=== PATIENT | male | born 1950 | race Caucasian/White ===

== ENCOUNTER 2018-09-24 15:11 | Inpatient (IN) | payer OTHER ==
[~2018-09-24] VITALS: Ht 185.4 cm; Wt 146.0 kg
[2018-09-24] MEDS ORDERED: LASIX 40 MG TAB40 M2 PO (15:14)
[2018-09-24] MEDS ORDERED: HYDROXYZINE HCL25 M1 PO (15:14)
[2018-09-24] MEDS ORDERED: TRAMADOL 50 MG50 MG PO (15:15)
[2018-09-24] MEDS ORDERED: NAPROSYN500 M1 PO (15:16)
[2018-09-24 15:17] VITALS: BP 139/75
[2018-09-24] MEDS ORDERED: CETIRIZINE HCL5 MG PO (15:17)
[2018-09-24] MEDS ORDERED: FLOMAX0.4 MG PO (15:17)
[2018-09-24] MEDS ORDERED: ZOCOR20 MG PO (15:18)
[2018-09-24] MEDS ORDERED: TRICOR145 MG PO (15:19)
[2018-09-24] MEDS ORDERED: TOPROL XL25 MG PO (15:19)
[2018-09-24] MEDS ORDERED: CYMBALTA60 MG PO (15:20)
[2018-09-24] MEDS ORDERED: MYRBETRIQ50 MG PO (15:20)
[2018-09-24] MEDS ORDERED: OXYBUTYNIN 5 MG5 M2 PO (15:21)
[2018-09-24] MEDS ORDERED: FLONASE 0.05%50 MCG NASAL (15:21)
[2018-09-24] MEDS ORDERED: ASPIRIN81 M2 PO (15:22)
[2018-09-24] MEDS ORDERED: IRON325 PO (15:22)
[2018-09-24 15:31] LABS: ABSOLUTE LYMPHOCYTES 1.2 thou/uL (0.8-5.3); ABSOLUTE MONOCYTES 0.7 thou/uL (0.0-1.2); ABSOLUTE NEUTROPHILS 8.5 thou/uL (1.6-8.1); BASOPHILS 0.4 %; EOSINOPHILS 0.3 %; HEMATOCRIT 37.7 % (42.0-52.0); HEMOGLOBIN 12.4 gm/dL (14.0-18.0); LYMPHOCYTES 11.3 %; MCH 29.8 pg (26.0-34.0); MCHC 32.9 g/dL (28.0-37.0); MCV 90.7 fL (80.0-100.0); MONOCYTES 6.6 %; MPV 7.9 fl. (7.2-11.1); NUCLEATED RBCS 0 /100WBC; PLATELET COUNT* 326 thou/uL (150-400); POLYS 81.4 %; RBC 4.16 mil/uL (4.50-6.00); RDW-CV 14.7 % (10.5-14.5); WBC 10.4 thou/uL (4.0-11.0)
[2018-09-24 15:40] LABS: ANION GAP 10 mmol/L (7-16); BUN 60 mg/dL (7-18); CALCIUM 8.5 mg/dL (8.5-10.1); CHLORIDE 108 mmol/L (98-107); CO2 24 mmol/L (21-32); CREATININE 2.7 mg/dL (0.6-1.3); GLUCOSE 123 mg/dL (70-99); POTASSIUM 4.4 mmol/L (3.5-5.1); SODIUM 142 mmol/L (136-145)
[2018-09-24 15:42] LABS: APTT 25.8 Seconds (25.0-31.3); PROTIME 10.5 Seconds (9.20-11.50)
[2018-09-24 15:50] LABS: ALBUMIN 2.7 g/dL (3.4-5.0); ALKALINE PHOSPHATASE 58 U/L (46-116); LIPASE 507 U/L (73-393); SGOT 26 U/L (15-37); SGPT 48 U/L (30-65); TOTAL BILIRUBIN 0.4 mg/dL (<0.1-1.0); TOTAL PROTEIN 7.2 g/dL (6.4-8.2); TROPONIN-I LEVEL <0.06 ng/mL (<0.06)
[2018-09-24 16:31] LABS: URINE BILIRUBIN NEGATIVE (Negative); URINE BLOOD TRACE (Negative); URINE CLARITY SL CLOUDY; URINE COLOR YELLOW; URINE GLUCOSE-RANDOM NEGATIVE (Negative); URINE KETONES NEGATIVE (Negative); URINE PROTEIN NEGATIVE (Negative); URINE SPECIFIC GRAVITY 1.015 (1.005-1.030); URINE UROBILINOGEN 0.2 E.U./dl (0.2-1.0)
[2018-09-24 16:32] LABS: URINE LEUKOCYTES-REFLEX 3+ (Negative); URINE NITRITE-REFLEX POSITIVE (Negative)
[2018-09-24 16:52] LABS: SQUAMOUS NONE SEEN /LPF (0-3); URINE WBC-REFLEX >25 Many /HPF (0-5)
[2018-09-24 16:53] LABS: BACTERIA-REFLEX >30 Many /HPF (None Seen); CASTS None Seen /LPF (None Seen); CRYSTALS None Seen /LPF (None Seen); MUCUS None Seen strn/LPF (None Seen); URINE RBC 0-2 Rare /HPF (0-2); WBC CLUMPS Few (None Seen)
[2018-09-24 20:08] VITALS: BP 157/73
[2018-09-24 20:14] VITALS: BP 127/75
--- NOTE | 2018-09-24 22:29 | NUR ---
RECEIVED REPORT FROM ER AND ASSUMED CARE OF PT APPROX 2009. PATIENT A&OX4. DENIES PAIN AND DISCOMFORT. VSS ON ROOM AIR. PATIENT STATES LIGHTHEADEDNESS IS SLIGHTLY BETTER, BUT STILL THERE OCCASIONALLY. 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 ADDRESSED ELEVATED D-DIMER WITH DR. CHANEY, NO NEW ORDERS RECEIVED. PATIENT ORIENTED TO ROOM AND CALL LIGHT. GOAL IS TO MAINTAIN PATIENT SAFETY AND PREVENT FALLS FROM SYNCOPE.
[2018-09-24 23:35] VITALS: BP 131/76
[2018-09-24 23:57] VITALS: BP 147/77
[2018-09-25] VITALS (8 sets, daily range): BP systolic 115–144; BP diastolic 56–76
[2018-09-25] MEDS ORDERED: GENTAMICIN 0.1%15 G2 TOP (01:57)
[2018-09-25] MEDS ORDERED: IBU800 MG PO (01:58)
[2018-09-25] MEDS ORDERED: APAP650 PO (02:07)
[2018-09-25 05:12] LABS: HEMATOCRIT 33.5 % (42.0-52.0); MCH 29.8 pg (26.0-34.0); MCHC 32.7 g/dL (28.0-37.0); MCV 91.3 fL (80.0-100.0); MPV 8.2 fl. (7.2-11.1); RBC 3.67 mil/uL (4.50-6.00); WBC 9.4 thou/uL (4.0-11.0)
[2018-09-25 05:31] LABS: CALCIUM 8.2 mg/dL (8.5-10.1); CREATININE 2.4 mg/dL (0.6-1.3); MAGNESIUM 1.8 mg/dL (1.8-2.4); POTASSIUM 4.5 mmol/L (3.5-5.1)
--- NOTE | 2018-09-25 05:48 | NUR ---
PATIENT PROGRESSING TOWARDS GOALS: NO EPISODES OF SYNCOPE THIS SHIFT, ALTHOUGH PATIENT DOES REPORT SOME LIGHTHEADEDNESS AT TIMES. PATIENT INSTRUCTED ON FALL PRECAUTIONS AND HE IS COMPLIANT. HR OCCASIONALLY INTO 160-180'S. DR. LANDRY NOTIFIED AND ORDERS OBTAINED FOR CARDIZEM GTT. CARDIZEM INFUSING AT 5 ML/HR. BLOOD PRESSURE STABLE. PATIENT HAS C/O PAIN IN LEFT BACK, PARTIALLY RELIEVED WITH MEDS PER MAR, ICE, AND HEAT APPLICATION. PATIENT ENCOURAGED TO REPOSITION FOR COMFORT. CALL LIGHT WITHIN REACH.
--- NOTE | 2018-09-25 09:00 | NUR ---
ASSUMED CARE OF PT AT 0730. PT RESTING IN BED. PT A&0X4, DENIES ANY PAIN OR SHROTNESS OF BREATH AT THIS TIME. PT NPO AT THIS TIME FOR CARDIOLOGY CONSULT. PT TRACING SR WITH BBB AND PACS ON THE SOLID DIE CUTTER. ON 2L NC SAT UPPER 90'S. CARDIZEM GTT INFUSING AT 5ML/HR. IVF. PT UP WITH 1 ASSIST AND CANE TO BATHROOM. PT GOAL FOR TODAY IS BE SEEN BY CARDIOLOGY, REMAIN FREE FROM FALLS AND REMAIN IN SINUS RHYTHM WITH NO EPISODES OF SVT. AM ASSESSMENT CHARTED. MEDICATIONS PER MAY. PT REPOSITIONS SELF. HOURLY ROUNDING OBSERVED. BED IN LOW POSITION. CALL LIGHT WITHIN REACH. WILL CONTINUE PLAN OF CARE.
--- NOTE | 2018-09-25 12:27 | NUR ---
MET WITH PT TO DISCUSS HOME SITUATION/DC PLANNING. PT LIVES WITH HIS SISTER. SHE IS DPOA. PT IS INDEPENDENT AND ACTIVE, USES CANE. HASN'T HAD HH. PT DID GO TO SNF IN PAST AT [facility]. PT DENIES DC NEEDS AT THIS TIME, WILL FOLLOW
[2018-09-25 13:30] LABS: CHOLESTEROL 85 mg/dL (<200); HDL CHOLESTEROL 37 mg/dL (>40); LDL CHOLESTEROL 25 mg/dL (<100); TC:HDL 2.3 Ratio (Not establshd); TRIGLYCERIDE 117 mg/dL (<150); VLDL 23 mg/dL (<40)
[2018-09-25 13:34] LABS: SERUM ASSESSMENT Clear
--- NOTE | 2018-09-25 14:25 | 2DMMODE ---
[place] [address] 2 D/M-MODE ECHOCARDIOGRAM Name: JACEK KURTZ Room: [facility] ADM IN [facility]#: [id number] Admission: 09/24/18 Attend Phys: Nicolas Byers, Discharge: Date of : 48 Date of Service: 09/25/18 1425 Report #: [id number] THIS REPORT FOR: //name// APPROVED REPORT Study performed: 09/25/2018 10:35:51 EXAM: Comprehensive 2D, Doppler, and color-flow Echocardiogram Patient Location: In-Patient Room #: [facility] [place] Status: routine BSA: 2.57 HR: 71 bpm BP: 133/76 mmHg Rhythm: NSR Other Information Study Quality: Good Indications Hypertension/HDD 2D Dimensions IVSd: 14.23 (7-11mm) LVOT Diam: 26.28 (18-24mm) LVDd: 56.18 mm PWd: 12.73 (7-11mm) Ascending Ao: 36.40 (22-36mm) LVDs: 37.31 (25-40mm) Aortic Root: 35.51 mm Volumes Left Atrial Volume (Systole) LA ESV Index: 27.20 mL/m2 Aortic Valve AoV Peak Williams.: 1.53 m/s AO Peak Gr.: 9.31 mmHg LVOT Max P.65 mmHg AO Mean Gr.: 5.59 mmHg LVOT Mean P.95 mmHg LVOT Max V: 0.96 m/s AO V2 VTI: 34.24 cm LVOT Mean V: 0.65 m/s MONTSE (VTI): 3.57 cm2 LVOT V1 VTI: 22.51 cm Mitral Valve E/A Ratio: 1.18 MV Decel. Time: 188.55 ms MV E Max Williams.: 0.78 m/[place] [address] 2 D/M-MODE ECHOCARDIOGRAM Name: JACEK KURTZ Room: [facility] IN .R.#: [id number] Admission: 09/24/18 Attend Phys: Nicolas Byers, Discharge: Date of : 48 Date of Service: 09/25/18 1425 Report #: [id number] MV PHT: 54.68 ms MVA (PHT): 4.02 cm2 TDI E/Lateral E': 6.00 E/Medial E': 8.67 Medial E' Williams.: 0.09 m/s Lateral E' Williams.: 0.13 m/s Pulmonary Valve PV Peak Williams.: 0.99 m/s PV Peak Gr.: 3.92 mmHg Tricuspid Valve RAP Estimate: 5.00 mmHg TR Peak Gr.: 33.26 mmHg RVSP: 38.00 mmHg PA Pressure: 38.00 mmHg Left Ventricle The left ventricle is normal size. There is normal LV segmental wall motion. There is normal left ventricular wall thickness. Left ventricular systolic function is normal. The left ventricular ejection fraction is within the normal range. LVEF is 55-60%. The left ventricular diastolic function is normal. Right Ventricle The right ventricle is normal size. The right ventricular systolic function is normal. Atria The left atrium size is normal. The right atrium size is normal. Aortic Valve Mild aortic valve sclerosis. Mild aortic regurgitation. There is no aortic valvular stenosis. Mitral Valve The mitral valve is normal in structure. Trace mitral regurgitation. No evidence of mitral valve stenosis. Tricuspid Valve The tricuspid valve is normal in structure. Trace tricuspid regurgitation. Mild pulmonary hypertension. Pulmonic Valve The pulmonary valve is normal in structure. There is no pulmonic [place] [address] 2 D/M-MODE ECHOCARDIOGRAM Name: TESSIEJACEK Johnathan Room: [address] IN [facility]#: [id number] Admission: 09/24/18 Attend Phys: Nicolas Byers, Discharge: Date of : 48 Date of Service: 09/25/18 1425 Report #: [id number] Great Vessels The aortic root is normal in size. The inferior vena cava is not well visualized. Pericardium There is no pericardial effusion. <Conclusion> The left ventricle is normal size. There is normal left ventricular wall thickness. Left ventricular systolic function is normal. The left ventricular ejection fraction is within the normal range. LVEF is 55-60%. The left ventricular diastolic function is normal. The right ventricle is normal size. The left atrium size is normal. Mild aortic valve sclerosis. Mild aortic regurgitation. There is no aortic valvular stenosis. The mitral valve is normal in structure. Trace mitral regurgitation. The tricuspid valve is normal in structure. There is no pericardial effusion. There is normal LV segmental wall motion. <ELECTRONICALLY SIGNED> By: Jacek Castillo MD, FACC 09/25/18 1425 1425 1425 Jacek Castillo MD, FACC /INF
--- NOTE | 2018-09-25 16:46 | NUR ---
PT COMPLAINED OF CHEST HEAVINESS AT APPROXIMATELY 1640. VITAL SIGNS STABLE AT 132/70, HEART RATE IN THE 60'S-70'S. PT STATES THE PRESSURE COMES AND GOES. EKG OBTAINED- PT TRACING SR WITH BBB AND PAC'S ON THE USER EXPERIENCE TEAM LEAD. ON 2L NC SAT 99%. PT DENIES ANY SHORTNESS OF BREATH. PT UP WITH 1 ASSIST AND CANE TO BATHROOM. SOTALOL STARTED TODAY. CARDIZEM GTT CONTINUES TO INFUSE AT 10ML/HR. IVF. PT HAD ECHO TODAY-EF 55-60%. PT NOT PROGRESSING TOWARDS GOALS. MEDICATIONS PER MAR. PT REPOSITIONS SELF. HOURLY ROUNDING OBSERVED. BED IN LOW POSITION. CALL LIGHT WITHIN REACH. WILL CONTINUE PLAN OF CARE.
[2018-09-26] VITALS: BP 109/63
[2018-09-26 04:17] VITALS: BP 126/68
--- NOTE | 2018-09-26 05:50 | NUR ---
RECEIVED REPORT AND ASSUMED CARE OF PATIENT AT APPROX 1930. PATIENT C/O CHEST PRESSURE AND SHORTNESS OF AIR AT TIME OF ASSESSMENT. EKG OBTAINED. DR. PHILLIP NOTIFIED. ORDERS RECEIVED AND CARRIED OUT. PATIENT REPORTS NO FURTHER CHEST PRESSURE AT THIS TIME. CARDIZEM GTT TURNED OFF DUE TO SOFT BP AND LOW HR. PATIENT INFORMED OF PLAN OF CARE. CALL LIGHT WITHIN REACH.
[2018-09-26 05:57] LABS: ANION GAP 7 mmol/L (7-16); BUN 45 mg/dL (7-18); CALCIUM 8.2 mg/dL (8.5-10.1); CHLORIDE 112 mmol/L (98-107); CO2 26 mmol/L (21-32); CREATININE 2.1 mg/dL (0.6-1.3); GLUCOSE 99 mg/dL (70-99); MAGNESIUM 2.3 mg/dL (1.8-2.4); POTASSIUM 4.7 mmol/L (3.5-5.1); SODIUM 145 mmol/L (136-145); TROPONIN-I LEVEL <0.06 ng/mL (<0.06)
[2018-09-26 07:45] VITALS: BP 121/64
--- NOTE | 2018-09-26 09:00 | NUR ---
ASSUMED CARE OF PT AT 0730. PT RESTING IN BED. PT A&0X4, DENIES ANY SHORTNESS OF BREATH, PAIN OR HEAVINESS IN CHEST. PT TRACING SB/SR WITH BBB ON THE FAMILY COUNSELOR. ON 2L NC SAT UPPER 90'S. PT NPO FOR CARDIOLOGY CONSULT. PT UP WITH 1 ASSIST AND CANE TO BATHROOM. PT GOAL FOR TODAY IS CARDIOLOGY CONSULT IN PLACE, REMAIN IN SINUS RHYTHM AND PAIN MGMT, AM ASSESSMENT CHARTED. MEDICATIONS PER MAY. PT REPOSITIONS SELF. HOURLY ROUNDING OBSERVED. BED IN LOW POSITION. CALL LIGHT WITHIN REACH. WILL CONTINUE PLAN OF CARE.
--- NOTE | 2018-09-26 12:59 | NUR ---
WOUND NURSE: PATIENT SEEN FOR PRESENCE OF BLE VLU'S. RIGHT LEG WOUND MEASURED 2.0 X 4.5 X 0.2 CM PRESNED WITH >75% GRANULATION TISSUE AND <25% SLOUGH, AND SMALL AMOUNT OF SEROUSANGUINOUS DRAINAGE. LLE: 1.0 X 0.8 X 0.1 CM, CONTAINS >75% EPILTHELIAL TISSUE IN THE WOUND BED, <25% RED, NONGRANULATING TISSUE IN THE BED, NO ACTIVE DRAINAGE PRESENT. PERIWOUND TISSUE ON BOTH WOUNDS WITHOUT REDNESS, WARMTH, OR INDURATION. THERE IS MINIMAL EDEMA NOTED IN BLE AT THIS TIME. PATIENT REPORTS HE IS SEEN BY CLINIC IN [place] FOR HIS WOUNDS AND IS NOT INTERESED IN THE USE OF COMPRESSION OR PROGRESS WOUND CARE HERE. A RESULT, PATIENT'S WOUNDS WERE CLEANSED WITH WOUND CLEANSER AND GAUZE, THEN APPLIED A BORDERED FOAM DRESSING TO EACH WOUND PATIENT AGREED TO. PATIENT INSTRUCTED ON THE IMPORTANCE OF EDEMA CONTROL WITH COMPRESSION AND ELEVATION TO PROMOTE HEALING AND IMPROVE SKIN INTEGRETY. PATIENT STATED HE UNDERSTOOD, BUT DOES NOT WANT COMPRESSION.
--- NOTE | 2018-09-26 13:44 | EKG ---
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
--- NOTE | 2018-09-26 14:00 | EKG ---
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
--- NOTE | 2018-09-26 14:02 | EKG ---
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
[2018-09-26 16:22] VITALS: BP 139/65
--- NOTE | 2018-09-26 17:14 | NUR ---
NO ACUTE CHANGES THROUGHOUT SHIFT. REFER TO CHARTING. PT HAD FIRST PART OF STRESS TEST TODAY. PT NPO AFTER MIDNIGHT. PT DENIES ANY CHEST PAIN, HEAVINESS OR SHORTNESS OF BREATH THROUGHOUT AFTERNOON. CONTINUES TO TRACE SB/SR WITH BBB AND OCCASIONAL PAC'S ON THE BUTTON SAWYER. NO EPISODES OF TACHYARRHYTHMIA. ON 2L NC SAT UPPER 90'S. PT UP WITH 1 ASSIST AND CANE TO BATHROOM. PT NOT PROGRESSING TOWARDS GOALS. MEDICATIONS PER MAY. PT REPOSITIONS SELF. HOURLY ROUNDING OBSERVED. BED IN LOW POSITION. CALL LIGHT WITHIN REACH. WILL CONTINUE PLAN OF CARE.
[2018-09-26 20:00] VITALS: BP 146/71
[2018-09-27] VITALS (12 sets, daily range): BP systolic 124–14145; BP diastolic 8–85
--- NOTE | 2018-09-27 05:18 | NUR ---
ASSUMED PT CARE AT 1930. ASSESSMENT COMPLETED CHARTED. ABLE TO MAKE NEEDS KNOWN. CALL LIGHT WITHIN REACH, FALL PRECAUTIONS IN PLACE. PT UP WITH 1 WITH CANE. NO C/O PAIN OR DISCOMFORT. PT RESTING IN BED AT THIS TIME. NO SIGNIFICANT CHANGES THIS SHIFT. WILL CONTINUE TO MONITOR.
[2018-09-27 05:36] LABS: CALCIUM 8.7 mg/dL (8.5-10.1); CREATININE 1.8 mg/dL (0.6-1.3)
[2018-09-27] MEDS ORDERED: SORINE 80 MG TA80 M1 PO (08:35)
[2018-09-27] MEDS ORDERED: CEFUROXIME250 MG PO (08:35)
--- NOTE | 2018-09-27 09:33 | CARDNUC ---
[place] [address] CARDIAC NUCLEAR IMAGING REPORT Name: JACEK KURTZ Room: [facility] IN [facility]#: [id number] Admission: 09/24/18 Attend Phys: Nicolas Byers, Discharge: Date of : 48 Date of Service: 09/27/18 0933 Report #: [id number] THIS REPORT FOR: //name// ADDENDUM APPROVED REPORT Study performed: 09/26/2018 12:07:38 Exam: Nuclear Stress Test Indication: Syncope, psvt Patient Location: In-Patient Room #: 227 Stress Tech: Leandra Weinstein Stress Nurse: Kayla Ponce RN NM Tech:REGINO Larson Ht: 6 ft 0 in Wt: 320 lbs BSA: 2.60 m2 BMI: 43.39 Medical History Medical History: hyperlipidemia, hypertension, Medications: asa-81, atorvastatin, sotalol Allergies: penicillin Cardiac Risk Factors: age, hyperlipidemia, hypertension,, tobacco, family hx Exercise History: Sedentary Stress Test Details Stress Test: Pharmacologic stress testing performed using 0.4 mg of regadenoson per 5 mL given IV over 10 seconds. Reason for pharmacologic stress test: physical limitation. HR Resting HR: 51 bpm Max Heart Rate (APMHR): 151 bpm Max HR Achieved: 70 bpm Target HR (85% APMHR): 128 bpm % of APMHR: 46 Recovery HR: 67 bpm BP Resting BP: 128/65 mmHg Max BP: 104/38 mmHg BP response to stress: normal ECG Resting ECG: nsr Stress ECG: none [address] [address] CARDIAC NUCLEAR IMAGING REPORT Name: JACEK KURTZ Room: [facility] IN [facility]#: [id number] Admission: 09/24/18 Attend Phys: Nicolas Byers, Discharge: Date of : 48 Date of Service: 09/27/18 0933 Report #: [id number] Change: nsr Arrhythmia: none Recovery ECG: normal Recovery ST Change: none Recovery Arrhythmia: none Clinical Reason for Termination: Completed protocol Stress Symptoms: none Exercise duration: 0 min sec Exercise capacity: 1 METs Nurse Comments pt has venous stasis and is unable to walk on treadmill Stress ECG Conclusion normal NM EXAM: Myocardial Perfusion REST/STRESS Imaging Protocol: Stress Tc-99m/Rest Tc-99m 2 days Pharmacologic Stress Pharmacologic stress test was performed by injecting Regadenoson 0.4 mg IV push followed by the intravenous injection of 34.5 mCi of Tc-99m Sestamibi. Time of stress injection: 1210 Date: 09/26/2018 Administration Route: IV Administration Site: Left AC Gated Stress SPECT was performed 40 minutes after stress injection. The images were gated to evaluate regional wall motion and calculate left ventricular ejection fraction. Stress only was performed in the Supine position. Study Quality Study: Good Artifact: Mild Increased GI uptake Study Data Post stress, the left ventricular ejection was 55%.. Perfusion STRESS SPECT images show a severe intensity inferior defect with an associated wall motion abnormality in the inferior segment. Images were [place] [address] CARDIAC NUCLEAR IMAGING REPORT Name: JACEK KURTZ Room: [address] IN [facility]#: [id number] Admission: 09/24/18 Attend Phys: Nicolas Byers, Discharge: Date of : 48 Date of Service: 09/27/18932 Report #: [id number] Wall Motion inferior hypokinesis Nuclear Conclusion ECG Findings: negative for ischemia Clinical Findings: negative for ischemia Nuclear Findings: positive for ischemia Exercise Capacity: not assessed Left Ventricular Function: normal Risk Study: low abnormal stress only nuclear stress test <Conclusion> normal <ELECTRONICALLY SIGNED> By: Edmond Overton MD, FAC 09/27/18932 2 2 Edmond Overton MD, FACC /INF
--- NOTE | 2018-09-27 09:46 | EKG ---
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1950 Requested By: Marisela Heredia Order Number: [id number] Reading MD: Edmond Overton Measurements Intervals [place] Rate: 63 P: 39 AR: 176 QRS: -74 QRSD: 157 T: 5 QT: 468 QTc: 480 Interpretive Statements Sinus rhythm Atrial premature complex RBBB and LAFB Compared to ECG 09/25/2018 20:16:39 Atrial premature complex(es) now present Junctional rhythm no longer present Electronically Signed On 09-27-2018 9:46:20 CDT by Edmond Overton [email or web address] <ELECTRONICALLY SIGNED> By: Edmond Overton MD, [facility] 09/27/18 0946 0843 0843 Edmond Overton MD, [facility] /EPI
--- NOTE | 2018-09-27 10:00 | NUR ---
INITAL ASSESSMENT COMPLETED CHARTED. VSS. TRACING SR ON MONITOR. PT DENIES PAIN, DIZZINESS, CP, SOA, N/V/D. PT DENIES ANY FURTHER NEEDS AT THIS TIME. HOURLY ROUNDING FOR PT SAFETY. CLWR.
--- NOTE | 2018-09-27 13:36 | NUR ---
CONTINUE TO FOLLOW. PT TO HAVE CARDIAC CATH TODAY AND HOPES TO GO HOME TOMORROW. DENIES DC NEEDS
--- NOTE | 2018-09-27 16:55 | EKG ---
[place] [address] ELECTROCARDIOGRAM REPORT Name: JACEK KURTZ Room: [place] [address] ADM IN .R.#: [id number] Admission: 09/24/18 Attend Phys: Nicolas Byers MD Discharge: Date of : 48 Report #: [id number] THIS REPORT FOR: //name// [facility] Test Date: 2018-09-27 Test Time: 16:28:59 Pat Name: JACEK KURTZ Department: Room: [place] [address] Gender: M Case Monitor: : 1950 Requested By: Jonny Vazquez Order Number: [id number] Reading MD: Edmond Overton Measurements Intervals [place] Rate: 57 P: 28 DE: 172 QRS: -66 QRSD: 155 T: -20 QT: 475 QTc: 463 Interpretive Statements Sinus rhythm RBBB and LAFB Compared to ECG 09/27/2018 08:43:11 Atrial premature complex(es) no longer present Electronically Signed On 09-27-2018 16:55:01 CDT by Edmond Overton [email or web address] <ELECTRONICALLY SIGNED> By: Edmond Overton MD, FACC 09/27/18 1655 1628 1628 Edmond Overton MD, [facility] /EPI
[2018-09-28] VITALS: BP 155/84
[2018-09-28 05:03] LABS: HEMATOCRIT 34.8 % (42.0-52.0); HEMOGLOBIN 11.2 gm/dL (14.0-18.0); MCH 29.5 pg (26.0-34.0); MCHC 32.1 g/dL (28.0-37.0); MCV 91.9 fL (80.0-100.0); MPV 7.7 fl. (7.2-11.1); RBC 3.78 mil/uL (4.50-6.00); WBC 7.7 thou/uL (4.0-11.0)
[2018-09-28 05:11] VITALS: BP 135/69
[2018-09-28 05:27] LABS: CALCIUM 8.8 mg/dL (8.5-10.1); CREATININE 1.9 mg/dL (0.6-1.3); POTASSIUM 4.7 mmol/L (3.5-5.1); TROPONIN-I LEVEL 0.19 ng/mL (<0.06)
--- NOTE | 2018-09-28 06:00 | NUR ---
ASSUMED PT CARE AT 1930. ASSESSMENT COMPLETED CHARTED. ABLE TO MAKE NEEDS KNOWN. UP WITH ASSIST WITH CANE. WOUNDS ON BLE. PT RESTING IN BED AT THIS TIME. R WRIST CATH SITE C/D/I. WILL CONTINUE TO MONITOR.
[2018-09-28 07:15] VITALS: BP 139/67
[2018-09-28 09:03] VITALS: BP 124/69
[2018-09-28] MEDS ORDERED: PLAVIX 75 MG TA75 M1 PO (09:26)
[2018-09-28] MEDS ORDERED: NITROGLYCERIN0.4 MG SUBLING (10:39)
[2018-09-28] MEDS ORDERED: CLARITIN10 M3 PO (10:42)
[2018-09-28] MEDS ORDERED: LIPITOR10 MG PO (10:45)
[2018-09-28 10:52] VITALS: BP 124/69
--- NOTE | 2018-09-28 11:30 | NUR ---
INITAL ASSESSMNET COMPLETED. PT TRACING SR ON MONITOR. VSS. HOURLY ROUNDING IN PLACE FOR PT SAFETY. CLWR.
--- NOTE | 2018-09-29 10:33 | CARD ---
[facility] [address] [place] [address] CARDIAC CATH REPORT Name: JACEK KURTZ Room: [facility] IN [facility]#: [id number] Admission: 09/24/18 Attend Phys: Nicolas Byers MD Discharge: 09/28/18 Date of : 48 Report #: [id number] THIS REPORT FOR: //name// APPROVED REPORT Study performed: 09/27/2018 13:44:33 Patient Details Patient Status: In-Patient Room #: The patient is a 68 year-old male Procedures Performed cath pci Indication Arrhythmia, Positive stress test Admission/Lab Medications/Medications given during procedure Glycoprotein IllbIlla Inhibitors, Heparin Unfract. Procedure Narrative The patient was brought electively to the Cardiac Catheterization Laboratory and was prepped and draped in a sterile manner. The right wrist was infiltrated with 1% Lidocaine subcutaneous anesthesia. A 6 sheath was inserted into the right radial artery. Coronary angiography was performed using coronary diagnostic catheters. The right coronary system was accessed and visualized with a Diagnostic catheter. The left coronary system was accessed and visualized with a Diagnostic catheter. Left ventricular/Aortic Valve gradient assessed via catheter pullback. Closure device was deployed with a 6 Fr vascband. The patient tolerated the procedure well and there were no complications associated with the procedure. There was no hematoma. Coronary Angiography The patient's coronary anatomy is right dominant. Diagnostic Cath Left Main normal LAD mid body diffuse 80% stenoses Diagonal 1 large, high take off normal Diagonal 2 large mod Circumflex distal 30% OM1 medium ,normal [facility] [address] [place] [address] CARDIAC CATH REPORT Name: JACEK KURTZ Room: [address] IN [facility].#: [id number] Admission: 09/24/18 Attend Phys: Nicolas Byers MD Discharge: 09/28/18 Date of : 48 Report #: [id number] OM2 medium,normal Right Coronary large, dominant, mid 50% distal 40% R PDA large normal RPLV medium normal Left Ventriculography Left Ventriculography was not performed. Hemodynamics There was no gradient across the aortic valve upon pullback. Pullback from the left ventricle to the aorta revealed no gradient across the aortic valve. PCI Technique Lesion Anticoagulation was achieved with Heparin. bolus of iv aggrastat given Percutaneous coronary intervention was performed on the mid left anterior descending artery segment. The lesion stenosis prior to intervention was 80% with PATRICIA 2 flow. A 6 fr xblad 3.5 Guide Catheter was used to engage the lm ostium. A bmw Interventional Guidewire was used to cross the lesion. STENT DEPLOYMENT A drug-eluting stent 2.5 mm x 23 mm was inserted and inflated up to 13atm for 15seconds. Repeat angiography revealed the following post-stent deployment results: 0% stenosis. Final angiography reveals 0 % stenosis with PATRICIA 3 flow. Conclusion 1. 80% stenosis noted of the mid lad 2. successful placement of a single drug eluting stent in the mid lad Recommendations Cardiac Rehabilitation Referral Aggressive Medical Therapy Medications Administered Clopidogrel Diagnostic Cath Approved by: Edmond Overton MD Date/Time: <ELECTRONICALLY SIGNED> By: Jonny Vazquez MD, [facility] 09/29/18 1033 1033 1033Dflorecita Vazquez MD, [facility] /INF
== END 2018-09-28 11:45 | disposition home or self-care (01) | DRG 246 ==
LOC: M.ERS 15:11 → M.TBA-ER 16:58 → M.2W 16:58
PROVIDERS: Family Medicine; Internal Medicine Cardiovascular Disease; Registered Nurse; ADMIT Internal Medicine
DX: I47.1 Supraventricular tachycardia (principal); N17.0 Acute kidney failure with tubular necrosis; I13.0 Hypertensive heart and chronic kidney disease with heart failure and stage 1 through stage 4 chronic kidney disease, or unspecified chronic kidney disease; I50.32 Chronic diastolic (congestive) heart failure; N30.01 Acute cystitis with hematuria; Z68.41 Body mass index [BMI] 40.0-44.9, adult; I25.10 Atherosclerotic heart disease of native coronary artery without angina pectoris; N18.3 Chronic kidney disease, stage 3 (moderate); E66.01 Morbid (severe) obesity due to excess calories; F32.9 Major depressive disorder, single episode, unspecified; E78.00 Pure hypercholesterolemia, unspecified; I87.8 Other specified disorders of veins; E78.5 Hyperlipidemia, unspecified; B96.20 Unspecified Escherichia coli [E. coli] as the cause of diseases classified elsewhere; Z88.0 Allergy status to penicillin; Z82.49 Family history of ischemic heart disease and other diseases of the circulatory system; Z79.82 Long term (current) use of aspirin; Z79.899 Other long term (current) drug therapy

== ENCOUNTER 2018-11-22 09:25 | Inpatient (IN) | payer OTHER ==
[~2018-11-22] VITALS: Ht 182.9 cm; Wt 125.1 kg
[~2018-11-22 09:25] MED LIST: APAP650 PO; ASPIRIN81 M2 PO; CEFUROXIME250 MG PO; CETIRIZINE HCL5 MG PO; CLARITIN10 M3 PO; CYMBALTA60 MG PO; FLOMAX0.4 MG PO; FLONASE 0.05%50 MCG NASAL; GENTAMICIN 0.1%15 G2 TOP; HYDROXYZINE HCL25 M1 PO; IBU800 MG PO; IRON325 PO; LASIX 40 MG TAB40 M2 PO; LIPITOR10 MG PO; MYRBETRIQ50 MG PO; NAPROSYN500 M1 PO; NITROGLYCERIN0.4 MG SUBLING; OXYBUTYNIN 5 MG5 M2 PO; PLAVIX 75 MG TA75 M1 PO; SORINE 80 MG TA80 M1 PO; TOPROL XL25 MG PO; TRAMADOL 50 MG50 MG PO; TRICOR145 MG PO; ZOCOR20 MG PO
[2018-11-22 09:32] VITALS: BP 111/63
[2018-11-22 10:05] LABS: ABSOLUTE LYMPHOCYTES 0.9 thou/uL (0.8-5.3); ABSOLUTE NEUTROPHILS 6.6 thou/uL (1.6-8.1); BASOPHILS 0.4 %; EOSINOPHILS 0.4 %; HEMATOCRIT 33.7 % (42.0-52.0); HEMOGLOBIN 11.2 gm/dL (14.0-18.0); LYMPHOCYTES 10.1 %; MCHC 33.3 g/dL (28.0-37.0); MCV 90.1 fL (80.0-100.0); MONOCYTES 12.1 %; MPV 7.3 fl. (7.2-11.1); NUCLEATED RBCS 0 /100WBC; PLATELET COUNT* 311 thou/uL (150-400); RBC 3.74 mil/uL (4.50-6.00); RDW-CV 14.8 % (10.5-14.5); WBC 8.6 thou/uL (4.0-11.0)
[2018-11-22 10:13] LABS: ANION GAP 13 mmol/L (7-16); BUN 53 mg/dL (7-18); CALCIUM 8.8 mg/dL (8.5-10.1); CHLORIDE 103 mmol/L (98-107); CO2 21 mmol/L (21-32); CREATININE 3.1 mg/dL (0.6-1.3); GLUCOSE 117 mg/dL (70-99); POTASSIUM 4.6 mmol/L (3.5-5.1); SODIUM 137 mmol/L (136-145)
[2018-11-22 10:22] LABS: ALBUMIN 2.7 g/dL (3.4-5.0); ALKALINE PHOSPHATASE 44 U/L (46-116); LIPASE 143 U/L (73-393); SGOT 19 U/L (15-37); SGPT 20 U/L (30-65); TOTAL BILIRUBIN 0.6 mg/dL (<0.1-1.0); TOTAL PROTEIN 7.5 g/dL (6.4-8.2); TROPONIN-I LEVEL <0.06 ng/mL (<0.06)
[2018-11-22 13:30] VITALS: BP 110/43
[2018-11-22 13:55] VITALS: BP 108/78
[2018-11-22 15:41] VITALS: BP 100/52
--- NOTE | 2018-11-22 20:12 | EKG ---
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1950 Requested By: James العراقي Order Number: [id number] MD: Michael Willis Measurements Intervals [place] Rate: 63 P: 25 OR: 160 QRS: -59 QRSD: 157 T: -31 QT: 448 QTc: 459 Interpretive Statements Sinus rhythm Atrial premature complex RBBB and LAFB Compared to ECG 09/27/2018 16:28:59 Atrial premature complex(es) now present Electronically Signed On 11-22-2018 20:12:35 CDT by Michael Willis [email or web address] <ELECTRONICALLY SIGNED> By: Daily Willis MD, FACC 11/22/182011 02 Daily Willis MD, [facility] /EPI
[2018-11-22 20:59] VITALS: BP 111/60
[2018-11-23] VITALS: BP 109/49
[2018-11-23 04:00] VITALS: BP 118/63
[2018-11-23 05:03] LABS: ABSOLUTE EOSINOPHILS 0.1 thou/uL (0.0-0.7); ABSOLUTE LYMPHOCYTES 0.9 thou/uL (0.8-5.3); ABSOLUTE MONOCYTES 1.2 thou/uL (0.0-1.2); ABSOLUTE NEUTROPHILS 7.8 thou/uL (1.6-8.1); BASOPHILS 0.3 %; EOSINOPHILS 0.9 %; HEMATOCRIT 33.2 % (42.0-52.0); HEMOGLOBIN 10.6 gm/dL (14.0-18.0); LYMPHOCYTES 9.2 %; MCH 29.5 pg (26.0-34.0); MCHC 32.1 g/dL (28.0-37.0); MONOCYTES 11.8 %; MPV 7.5 fl. (7.2-11.1); NUCLEATED RBCS 0 /100WBC; PLATELET COUNT* 272 thou/uL (150-400); POLYS 77.8 %; RBC 3.61 mil/uL (4.50-6.00); RDW-CV 15.4 % (10.5-14.5)
[2018-11-23 05:10] LABS: CALCIUM 8.8 mg/dL (8.5-10.1); CREATININE 2.9 mg/dL (0.6-1.3); MAGNESIUM 2.2 mg/dL (1.8-2.4); POTASSIUM 4.8 mmol/L (3.5-5.1)
[2018-11-23 08:00] VITALS: BP 115/61
[2018-11-23 11:52] VITALS: BP 113/59
[2018-11-23 16:47] VITALS: BP 113/61
[2018-11-23 20:34] VITALS: BP 122/66
[2018-11-24 00:48] VITALS: BP 136/75
[2018-11-24 04:46] VITALS: BP 125/74
[2018-11-24 05:32] LABS: ABSOLUTE EOSINOPHILS 0.1 thou/uL (0.0-0.7); ABSOLUTE LYMPHOCYTES 1.1 thou/uL (0.8-5.3); ABSOLUTE NEUTROPHILS 8.9 thou/uL (1.6-8.1); BASOPHILS 0.3 %; EOSINOPHILS 0.9 %; HEMATOCRIT 32.3 % (42.0-52.0); HEMOGLOBIN 10.6 gm/dL (14.0-18.0); LYMPHOCYTES 9.7 %; MCH 29.7 pg (26.0-34.0); MCHC 32.8 g/dL (28.0-37.0); MCV 90.5 fL (80.0-100.0); MONOCYTES 8.6 %; MPV 7.4 fl. (7.2-11.1); NUCLEATED RBCS 0 /100WBC; PLATELET COUNT* 273 thou/uL (150-400); POLYS 80.5 %; RBC 3.57 mil/uL (4.50-6.00); RDW-CV 15.2 % (10.5-14.5)
[2018-11-24 05:46] LABS: CALCIUM 8.6 mg/dL (8.5-10.1); CREATININE 2.5 mg/dL (0.6-1.3)
[2018-11-24 08:00] VITALS: BP 130/77
[2018-11-24 09:48] LABS: AMP/METHAMP Negative (Negative); BARBITURATES Negative (Negative); BENZODIAZEPINES Negative (Negative); COCAINE Negative (Negative); METHADONE Negative (Negative); OPIATES Negative (Negative); PCP Negative (Negative); THC Negative (Negative)
[2018-11-24 09:49] LABS: URINE BILIRUBIN NEGATIVE (Negative); URINE BLOOD 3+ (Negative); URINE CLARITY CLOUDY; URINE COLOR BROWN; URINE GLUCOSE-RANDOM NEGATIVE (Negative); URINE KETONES NEGATIVE (Negative); URINE LEUKOCYTES 3+ (Negative); URINE NITRITE NEGATIVE (Negative); URINE PROTEIN 2+ (Negative)
[2018-11-24 10:01] LABS: SQUAMOUS NONE SEEN /LPF (0-3)
[2018-11-24 10:02] LABS: URINE WBC >25 Many /HPF (0-5); WBC CLUMPS Few (None Seen)
[2018-11-24 10:03] LABS: BACTERIA >30 Many /HPF (None Seen); CASTS None Seen /LPF (None Seen); CRYSTALS None Seen /LPF (None Seen); MUCUS 4-6 Moderate strn/LPF (None Seen); URINE RBC >20 Many /HPF (0-2)
[2018-11-24 12:00] VITALS: BP 135/76
[2018-11-24 20:00] VITALS: BP 135/82
[2018-11-25] VITALS (8 sets, daily range): BP systolic 112–165; BP diastolic 70–80
[2018-11-25 12:19] LABS: CREATININE 2.4 mg/dL (0.6-1.3); POTASSIUM 4.3 mmol/L (3.5-5.1)
[2018-11-26] VITALS (51 sets, daily range): BP systolic 51–148; BP diastolic 25–86
[2018-11-26 05:17] LABS: ABSOLUTE EOSINOPHILS 0.2 thou/uL (0.0-0.7); ABSOLUTE LYMPHOCYTES 1.4 thou/uL (0.8-5.3); ABSOLUTE MONOCYTES 0.8 thou/uL (0.0-1.2); ABSOLUTE NEUTROPHILS 5.9 thou/uL (1.6-8.1); BASOPHILS 0.5 %; HEMATOCRIT 36.1 % (42.0-52.0); HEMOGLOBIN 11.6 gm/dL (14.0-18.0); LYMPHOCYTES 16.5 %; MCH 29.3 pg (26.0-34.0); MCHC 32.2 g/dL (28.0-37.0); MCV 91.1 fL (80.0-100.0); MONOCYTES 10.1 %; MPV 7.2 fl. (7.2-11.1); NUCLEATED RBCS 0 /100WBC; PLATELET COUNT* 333 thou/uL (150-400); POLYS 70.9 %; RBC 3.96 mil/uL (4.50-6.00); RDW-CV 14.6 % (10.5-14.5); WBC 8.3 thou/uL (4.0-11.0)
[2018-11-26 05:32] LABS: CALCIUM 9.4 mg/dL (8.5-10.1); CREATININE 2.1 mg/dL (0.6-1.3); POTASSIUM 4.3 mmol/L (3.5-5.1)
[2018-11-26 14:23] LABS: ABSOLUTE BASOPHILS 0.1 thou/uL (0.0-0.2); ABSOLUTE EOSINOPHILS 0.1 thou/uL (0.0-0.7); ABSOLUTE LYMPHOCYTES 3.8 thou/uL (0.8-5.3); ABSOLUTE MONOCYTES 0.2 thou/uL (0.0-1.2); ABSOLUTE NEUTROPHILS 11.2 thou/uL (1.6-8.1); BASOPHILS 0.8 %; EOSINOPHILS 0.7 %; HEMATOCRIT 45.4 % (42.0-52.0); LYMPHOCYTES 24.6 %; MCV 93.6 fL (80.0-100.0); MONOCYTES 1.5 %; MPV 7.3 fl. (7.2-11.1); NUCLEATED RBCS 0 /100WBC; POLYS 72.4 %; RBC 4.86 mil/uL (4.50-6.00); RDW-CV 15.4 % (10.5-14.5); WBC 15.4 thou/uL (4.0-11.0)
[2018-11-26 14:26] LABS: BE -11.3 mmol/L (-2 to +3)
[2018-11-26 14:29] LABS: pH 7.047 (7.340-7.450)
[2018-11-26 14:29] LABS: HEMOGLOBIN 14.1 gm/dL (14.0-18.0); PLATELET COUNT* 491 thou/uL (150-400)
[2018-11-26 14:30] LABS: PCO2 77.4 mmHg (35.0-45.0)
[2018-11-26 14:53] LABS: ALBUMIN 2.4 g/dL (3.4-5.0); ALKALINE PHOSPHATASE 80 U/L (46-116); ANION GAP 11 mmol/L (7-16); BUN 40 mg/dL (7-18); CALCIUM 9.4 mg/dL (8.5-10.1); CHLORIDE 104 mmol/L (98-107); CO2 24 mmol/L (21-32); CREATININE 2.6 mg/dL (0.6-1.3); GLUCOSE 216 mg/dL (70-99); MAGNESIUM 2.3 mg/dL (1.8-2.4); POTASSIUM 4.8 mmol/L (3.5-5.1); SGOT 46 U/L (15-37); SGPT 35 U/L (30-65); SODIUM 139 mmol/L (136-145); TOTAL BILIRUBIN 0.3 mg/dL (<0.1-1.0); TOTAL PROTEIN 7.6 g/dL (6.4-8.2); TROPONIN-I LEVEL <0.06 ng/mL (<0.06)
[2018-11-26 15:04] LABS: PLATELET ESTIMATE ADEQUATE
[2018-11-26 16:41] LABS: APTT 21.9 Seconds (25.0-31.3); INR 1.1; PROTIME 11.4 Seconds (9.20-11.50)
[2018-11-26 17:17] LABS: ANTI-Xa-UNFRACTIONATED HEP 7.608; BE -3.4 mmol/L (-2 to +3)
[2018-11-26 17:22] LABS: PO2 199.7 mmHg (75.0-100.0); pH 7.608 (7.340-7.450)
--- NOTE | 2018-11-26 17:49 | 2DMMODE ---
[facility] [address] [place] [address] 2 D/M-MODE ECHOCARDIOGRAM Name: LUCRETIAILIAJACEK Room: [facility] ADM [facility]#: [id number] Admission: 11/22/18 Attend Phys: Jane Becerra MD Discharge: Date of : 48 Date of Service: 11/26/18 1748 Report #: [id number] THIS REPORT FOR: //name// APPROVED REPORT Study performed: 11/26/2018 16:40:49 EXAM: Limited 2D, Doppler, and color-flow Echocardiogram Patient Location: In-Patient Room #: [facility] Status: routine BSA: 2.44 HR: 70 bpm BP: 105/58 mmHg Rhythm: NSR Other Information Study Quality: Adequate Indications Dyspnea Chest Pain Reassess EF and Right side pressures Left Ventricle The left ventricle is normal size. Global LV systolic function appears preserved. There is left ventricular systolic discharge MG consistent with underlying bundle branch block. Mild concentric left ventricular hypertrophy. The left ventricular systolic function is normal. LVEF is 55-60%. Right Ventricle Right ventricle is mildly dilated. The right ventricular systolic function is normal. Atria Not well visualized. Is not well visualized. Aortic Valve Aortic valve is not well visualized. Mitral Valve The mitral valve is normal in structure. Tricuspid Valve Tricuspid valve is not well visualized. Trace tricuspid [facility] [address] [place] [address] 2 D/M-MODE ECHOCARDIOGRAM Name: JACEK KURTZ Room: [address] IN .R.#: [id number] Admission: 11/22/18 Attend Phys: Jane Becerra MD Discharge: Date of : 48 Date of Service: 11/26/181747 Report #: [id number] regurgitation. No apparent pulmonary hypertension. Pulmonic Valve Pulmonic valve is not well visualized. Great Vessels The aortic root is normal in size. The inferior vena cava is not well visualized. Pericardium There is no pericardial effusion. <Conclusion> The left ventricle is normal size. The left ventricle is normal size. Mild concentric left ventricular hypertrophy. The left ventricular systolic function is normal. LVEF is 55-60%. Global LV systolic function appears preserved. There is left ventricular systolic discharge MG consistent with underlying bundle branch block. Trace tricuspid regurgitation. No apparent pulmonary hypertension. <ELECTRONICALLY SIGNED> By: Garth New MD, FACC 11/26/181747 47 47 Garth New MD, FACC /INF
[2018-11-27] VITALS (17 sets, daily range): BP systolic 109–142; BP diastolic 55–83
[2018-11-27 06:12] LABS: HEMATOCRIT 33.6 % (42.0-52.0); MCH 29.4 pg (26.0-34.0); MCHC 32.5 g/dL (28.0-37.0); MCV 90.3 fL (80.0-100.0); MPV 7.4 fl. (7.2-11.1); NUCLEATED RBCS 0 /100WBC; RBC 3.72 mil/uL (4.50-6.00)
[2018-11-27 06:16] LABS: CALCIUM 8.3 mg/dL (8.5-10.1); CREATININE 2.8 mg/dL (0.6-1.3); POTASSIUM 4.4 mmol/L (3.5-5.1)
[2018-11-27 06:33] LABS: HEMOGLOBIN 10.9 gm/dL (14.0-18.0); PLATELET COUNT* 342 thou/uL (150-400)
[2018-11-27 08:10] LABS: ABSOLUTE LYMPHOCYTES 2.4 thou/uL (0.8-5.3); ABSOLUTE MONOCYTES 0.2 thou/uL (0.0-1.2); ABSOLUTE NEUTROPHILS 19.4 thou/uL (1.6-8.1); PLATELET ESTIMATE INCREASED
[2018-11-27 08:11] LABS: HYPOCHROMASIA 1+
[2018-11-27 08:29] LABS: BE -6.1 mmol/L (-2 to +3); PCO2 27.5 mmHg (35.0-45.0); PO2 70.4 mmHg (75.0-100.0); pH 7.411 (7.340-7.450)
--- NOTE | 2018-11-27 08:36 | CON ---
[address] [address] CONSULTATION Name: JACEK KURTZ Room: [address] IN ..#: [id number] Admission: 11/22/18 Attend Phys: Jane Becerra MD Discharge: Date of : 48 Report #: [id number] THIS REPORT FOR: //name// CC: Ciaran Becerra MD DATE OF SERVICE: 11/26/2018 PULMONARY CONSULTATION ATTENDING PHYSICIAN: Jane Becerra MD LOCATION: The patient in the ICU at 11/26/2018. He was in the floor in on 208 and he is being transferred to bed 5 in the ICU. INDICATION FOR CONSULTATION: Acute hypercarbic respiratory failure, dyspnea and bronchospasm. CLINICAL SUMMARY: The patient is a 68-year-old male with multiple medical problems. The patient was admitted to the hospital several days ago with a 4-5 day history of increasing abdominal and epigastric pain. The patient had some urinary retention, also had constipation, was seen by Urology. Bob catheter was placed. His bladder scan seemed to decrease in size and he was making urine. His abdominal pain seemed to decrease. The patient had been on some antibiotics and Flomax, seems to be doing better and was also treated for some mild diastolic congestive heart failure. 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 Says there is a family history of asthma, but he has never taken inhalers or had bronchospasm before. He was bronchospastic up on the floor when a MET team was called. The patient was seen, he had multifocal atrial tachycardia with heart rate of 110. Initially, blood pressure is 100/70. It dropped to the 80/50 range in the ICU and will give him some fluids. He was alert and awake after getting on BiPAP. His blood gases before he was on the BiPAP on 100% nonrebreather, pO2 was greater than 300, pH was down to 7.04 and pCO2 was 77, bicarb was only 21. His creatinine has been between 2.7 and 3.1. Urine output has been fair with the Bob. I was asked to see him. He is not on oxygen at home, not on inhalers at home. Does not have CPAP or BiPAP at home. PAST MEDICAL HISTORY: Acute and chronic renal failure. He has had coronary artery disease with left anterior descending stent by Dr. Vazquez in 07/2018 at [place], also had supraventricular tachycardia and again some hypertension. No history of COPD, asthma, or obstructive sleep apnea. He has also had chronic [facility] [address] [facility] [place] [address] CONSULTATION Name: JACEK KURTZ Room: [address] IN [facility]#: [id number] Admission: 11/22/18 Attend Phys: Jane Becerra MD Discharge: Date of : 48 Report #: [id number] urinary tract infections and benign prostatic hypertrophy with bladder outlet obstruction. ALLERGIES: HE HAS ALLERGIES OR INTOLERANCE TO PENICILLINS. Reaction is not known. OUTPATIENT MEDICATIONS: He was on Plavix at 75 mg daily. Also, supposed to be on sotalol 80 mg once daily, was on ceftriaxone, then placed on Ceftin at 250 mg b.i.d., also on tamsulosin 0.4 mg daily, TriCor 145 mg daily, Cymbalta 60 mg daily, ferrous sulfate 325 mg daily and nitroglycerin p.r.n., also on simvastatin 20 mg daily. The Lasix has been held and aspirin was also held. FAMILY HISTORY: Positive for some heart failure and also for some asthma in his sister and another [id number] and his parents. SOCIAL HISTORY: He is a lifelong nonsmoker, nondrinker. 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 He had occupational exposure to toluene and latex paints. He did indoor and outdoor painting. Denies any illicit drug use. REVIEW OF SYSTEMS: Other 14-point review of systems: GENERAL: Negative. HEAD, EYES, EARS, NOSE AND THROAT: Unremarkable. No headache, blurry vision. CARDIOVASCULAR: SVT and palpitations and occasional chest pain. RESPIRATORY: Negative for shortness of breath, cough or wheezing. GASTROINTESTINAL: Negative. He had some abdominal pain, no nausea or vomiting. GENITOURINARY: He had some urinary frequency and bladder outlet obstruction. MUSCULOSKELETAL: Denies joint pain. PSYCHIATRIC: Denies anxiety or depression. ENDOCRINE: No diabetes or thyroid disease. SKIN: He has some chronic venous stasis changes. HEMATOLOGIC: No bleeding, bruising. NEUROLOGIC: Denies numbness or tingling. PHYSICAL EXAMINATION: GENERAL: A ill-appearing 68-year-old male with the MET team call. He can answer yes or no to my questions while he was lying flat. He is moderately obese. VITAL SIGNS: Initially on the floor was 130/78, heart rate was 88, respirations were 12. He was being bagged at 20 and then a temperature is 37 degrees. He was on room air earlier in the day with sats of 94-95 and then he was on 100% nonrebreather with a sat of 99%. He is 6 feet tall, weight 125 kilograms or 270 pounds, BMI is 37. HEENT: Pupils were midpoint when I saw him on the floor. Pharynx was crowded. Mallampati score of 2-3. NECK: He has a thick neck. CHEST: Shows scoliosis. He had moderate bilateral expiratory wheezing, no [facility] [address] [place] [address] CONSULTATION Name: JACEK KURTZ Room: [address] IN [facility]#: [id number] Admission: 11/22/18 Attend Phys: Jane Becerra MD Discharge: Date of : 48 Report #: [id number] inspiratory stridor noted. CARDIOVASCULAR: Sinus rhythm to sinus tachycardia with some PACs again 80s-90s for rate. ABDOMEN: Markedly obese without masses or megaly. EXTREMITIES: Show chronic venous stasis changes. Peripheral pulses 1-2+. He moves all extremities to exam and to commands. Nonfocal neurologic and he did wake up on the BiPAP. LABORATORY DATA: From 11/26/2018, hemoglobin is 14, white count 15,400, platelets are 491,000, normal differential. No eosinophilia. Sodium is 139, potassium is 4.8, carbon dioxide is 24, BUN is 40, creatinine 2.6, glucose is 216 and ALT is 35, normal. AST is 46, slightly abnormal and albumin is 2.4. ABGs drawn at 1410 today on 100% nonrebreather showed a pO2 of 321, pH 7.04, pCO2 of 77 and then a bicarbonate of 21, sat was 98%. Carboxyhemoglobin was only 0.7. Chest x-ray shows clear lung polanco, mild elevation of the right hemidiaphragm, mild thoracic scoliosis noted and heart size is normal. No enlargement of the pulmonary arteries. On the CT abdomen, there is minimal atelectasis of the right lower lobe with minimal scar tissue and again no prior PFTs or a sleep study on this patient per old records. IMPRESSION: 1. Hypercarbic respiratory failure secondary to mucus plugging bronchospasm. No definite history of aspiration, but certainly bronchospastic at this time with CO2 retention. No prior history of COPD or smoking. We will treat with steroids and DuoNeb treatments, which have been ordered. 2. Diastolic congestive heart failure. Would hold Lasix, give some fluids if needed for blood pressure with positive airway pressures and tidal volumes of 1200 on the BiPAP machine at this time. 3. Chronic kidney disease. 4. Benign prostatic hypertrophy with bladder outlet obstruction. PLAN: Slowly give some fluids to see if we can fill up his tank a little bit and decrease his bronchospasm. He is on steroids and nebulizers. I do not think he needs antibiotics at least at this time for a lung standpoint and we will get a followup ABG in the morning. We will get some ABGs in a couple of hours. He is currently on BiPAP at 40% 16/8 with a backup rate of 20. We will see if we can get his pH backup to 740 and see what his CO2 level should be 35-40 at baseline. The patient is starting to wake up and certainly as an outpatient in 4-6 weeks he will need full PFTs and possibly a sleep study to see if he has obstructive sleep apnea to explain his CO2 retention. 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 Thanks again for allowing us to participate in this man's care. It has been a [facility] [address] [facility] [place] [address] CONSULTATION Name: JACEK KURTZ Room: [address] IN .R.#: [id number] Admission: 11/22/18 Attend Phys: Jane Becerra MD Discharge: Date of : 48 Report #: [id number] 38-minute critical care consult. We will follow along with you while he is in the intensive care unit. <ELECTRONICALLY SIGNED> By: Blade Parmar MD 11/27/18 0836 1541 0034Antfito Parmar MD /nt
--- NOTE | 2018-11-27 10:19 | EKG ---
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 : 1950 Requested By: Jane Becerra Order Number: [id number] Sukumar MD: Jonny Vazquez Measurements Intervals [place] Rate: 114 P: -45 MD: 127 QRS: -80 QRSD: 141 T: 91 QT: 347 QTc: 478 Interpretive Statements atrial fibrillation RBBB and LAFB Compared to ECG 11/22/2018 10:03:21 Sinus rhythm no longer present Electronically Signed On 11-27-2018 10:19:43 CDT by Jonny Vazquez [email or web address] <ELECTRONICALLY SIGNED> By: Jonny Vazquez MD, [facility] 11/27/18 1019 1346 45 Jonny Vazquez MD, [facility] /EPI
[2018-11-28] VITALS: BP 127/67
[2018-11-28 04:00] VITALS: BP 128/75
[2018-11-28 04:25] LABS: ABSOLUTE LYMPHOCYTES 1.3 thou/uL (0.8-5.3); ABSOLUTE MONOCYTES 0.8 thou/uL (0.0-1.2); ABSOLUTE NEUTROPHILS 15.1 thou/uL (1.6-8.1); BASOPHILS 0.2 %; HEMATOCRIT 31.5 % (42.0-52.0); LYMPHOCYTES 7.5 %; MCH 28.9 pg (26.0-34.0); MCHC 31.7 g/dL (28.0-37.0); MCV 91.1 fL (80.0-100.0); MONOCYTES 4.8 %; MPV 7.6 fl. (7.2-11.1); NUCLEATED RBCS 0 /100WBC; PLATELET COUNT* 334 thou/uL (150-400); POLYS 87.5 %; RBC 3.45 mil/uL (4.50-6.00); RDW-CV 14.7 % (10.5-14.5); WBC 17.3 thou/uL (4.0-11.0)
[2018-11-28 04:51] LABS: CALCIUM 8.2 mg/dL (8.5-10.1); CREATININE 2.6 mg/dL (0.6-1.3); POTASSIUM 4.4 mmol/L (3.5-5.1)
[2018-11-28 08:00] VITALS: BP 136/73
[2018-11-28] MEDS ORDERED: IRON325 PO (10:47)
[2018-11-28] MEDS ORDERED: CIPRO250 M1 PO (10:47)
[2018-11-28] MEDS ORDERED: METOPROLOL SUCC25 M1 PO (10:48)
[2018-11-28] MEDS ORDERED: PANTOPRAZOLE SO40 M1 PO (10:49)
[2018-11-28] MEDS ORDERED: FINASTERIDE5 MG PO (10:49)
[2018-11-28] MEDS ORDERED: DOK PLUS TABLE1 EACH PO (10:49)
[2018-11-28] MEDS ORDERED: PREDNISONE 20 M20 MG PO (10:49)
[2018-11-28] MEDS ORDERED: VENTOLIN HFA 1818 GM INH (10:50)
[2018-11-28] MEDS ORDERED: LIPITOR 20 MG T20 M1 PO (10:50)
[2018-11-28 11:09] VITALS: BP 112/70
[2018-11-28 11:20] VITALS: BP 112/70
--- NOTE | 2018-11-29 11:11 | EKG ---
[place] [address] ELECTROCARDIOGRAM REPORT Name: JACEK KURTZ Room: [address] IN [facility].#: [id number] Admission: 11/22/18 Attend Phys: Jane Becerra MD Discharge: 11/28/18 Date of : 48 Report #: [id number] THIS REPORT FOR: //name// [facility] Test Date: 2018-11-28 Test Time: 11:50:16 Pat Name: JACEK KURTZ Department: Room: [facility] Gender: M Representative Personal Service: : 1950 Requested By: Jane Becerra Order Number: [id number] Sukumar MD: Jonny Vazquez Measurements Intervals [place] Rate: 65 P: 36 TX: 172 QRS: -66 QRSD: 167 T: 4 QT: 499 QTc: 519 Interpretive Statements Sinus rhythm RBBB and LAFB Compared to ECG 11/26/2018 13:46:49 Atrial fibrillation no longer present Electronically Signed On 11-29-2018 11:11:18 CDT by Jonny Vazquez [email or web address] <ELECTRONICALLY SIGNED> By: Jonny Vazquez MD, [facility] 11/29/18 1111 1150 1150 Jonny Vazquez MD, [facility] /EPI
== END 2018-11-28 13:30 | disposition home health service (06) | DRG 682 ==
LOC: M.ERS 09:25 → M.2W 12:31 → M.TBA-ER 12:31 → M.2W 14:20 → M.ICU 11-26 14:21 → M.2W 11-27 20:35
PROVIDERS: Emergency Medicine Emergency Medical Services; Internal Medicine Pulmonary Disease; Nurse Practitioner Adult Health; ADMIT Family Medicine
PROC: 02HV33Z Insertion of Infusion Device into Superior Vena Cava, Percutaneous Approach (ICD-10-PCS; principal; 2018-11-26)
DX: N17.0 Acute kidney failure with tubular necrosis (principal); J96.02 Acute respiratory failure with hypercapnia; J96.01 Acute respiratory failure with hypoxia; I13.0 Hypertensive heart and chronic kidney disease with heart failure and stage 1 through stage 4 chronic kidney disease, or unspecified chronic kidney disease; N13.8 Other obstructive and reflux uropathy; I50.32 Chronic diastolic (congestive) heart failure; E44.0 Moderate protein-calorie malnutrition; I47.1 Supraventricular tachycardia; N39.0 Urinary tract infection, site not specified; N40.1 Benign prostatic hyperplasia with lower urinary tract symptoms; N18.3 Chronic kidney disease, stage 3 (moderate); K21.9 Gastro-esophageal reflux disease without esophagitis; E78.00 Pure hypercholesterolemia, unspecified; F32.9 Major depressive disorder, single episode, unspecified; I25.10 Atherosclerotic heart disease of native coronary artery without angina pectoris; N13.30 Unspecified hydronephrosis; E78.5 Hyperlipidemia, unspecified; I87.2 Venous insufficiency (chronic) (peripheral); R31.0 Gross hematuria; T38.0X5A Adverse effect of glucocorticoids and synthetic analogues, initial encounter; K59.00 Constipation, unspecified; N28.1 Cyst of kidney, acquired; R33.8 Other retention of urine; I95.9 Hypotension, unspecified; R73.9 Hyperglycemia, unspecified; Z95.5 Presence of coronary angioplasty implant and graft; Z88.0 Allergy status to penicillin; Z82.49 Family history of ischemic heart disease and other diseases of the circulatory system; Z82.5 Family history of asthma and other chronic lower respiratory diseases; Z79.82 Long term (current) use of aspirin; Z79.899 Other long term (current) drug therapy; Y92.89 Other specified places as the place of occurrence of the external cause

== ENCOUNTER 2018-12-05 13:39 | Inpatient (IN) | payer OTHER ==
[~2018-12-05] VITALS: Ht 182.9 cm; Wt 125.5 kg
[~2018-12-05 13:39] MED LIST changes: +CIPRO250 M1 PO; +DOK PLUS TABLE1 EACH PO; +FINASTERIDE5 MG PO; +LIPITOR 20 MG T20 M1 PO; +METOPROLOL SUCC25 M1 PO; +PANTOPRAZOLE SO40 M1 PO; +PREDNISONE 20 M20 MG PO; +VENTOLIN HFA 1818 GM INH
[2018-12-05 13:43] VITALS: BP 141/83
[2018-12-05] MEDS ORDERED: LASIX 40 MG TAB40 M2 PO (13:51)
[2018-12-05 14:06] LABS: ABSOLUTE BASOPHILS 0.1 thou/uL (0.0-0.2); ABSOLUTE LYMPHOCYTES 1.4 thou/uL (0.8-5.3); ABSOLUTE NEUTROPHILS 11.7 thou/uL (1.6-8.1); BASOPHILS 0.5 %; EOSINOPHILS 0.2 %; HEMATOCRIT 36.5 % (42.0-52.0); HEMOGLOBIN 11.9 gm/dL (14.0-18.0); LYMPHOCYTES 10.1 %; MCH 29.8 pg (26.0-34.0); MCHC 32.6 g/dL (28.0-37.0); MCV 91.5 fL (80.0-100.0); MONOCYTES 7.1 %; MPV 7.8 fl. (7.2-11.1); NUCLEATED RBCS 0 /100WBC; PLATELET COUNT* 390 thou/uL (150-400); POLYS 82.1 %; RBC 3.99 mil/uL (4.50-6.00); RDW-CV 15.9 % (10.5-14.5); WBC 14.3 thou/uL (4.0-11.0)
[2018-12-05 14:15] LABS: ANION GAP 15 mmol/L (7-16); BUN 49 mg/dL (7-18); CHLORIDE 103 mmol/L (98-107); CO2 22 mmol/L (21-32); CREATININE 2.7 mg/dL (0.6-1.3); GLUCOSE 124 mg/dL (70-99); SODIUM 140 mmol/L (136-145)
[2018-12-05 14:31] LABS: ALBUMIN 3.4 g/dL (3.4-5.0); ALKALINE PHOSPHATASE 59 U/L (46-116); NT-PRO BRAIN NAT PEPTIDE 809 pg/mL (<300); SGOT 19 U/L (15-37); SGPT 32 U/L (30-65); TOTAL BILIRUBIN 0.7 mg/dL (<0.1-1.0); TOTAL PROTEIN 7.2 g/dL (6.4-8.2); TROPONIN-I LEVEL <0.06 ng/mL (<0.06)
[2018-12-05 15:16] LABS: URINE BILIRUBIN NEGATIVE (Negative); URINE BLOOD NEGATIVE (Negative); URINE CLARITY CLEAR; URINE COLOR YELLOW; URINE GLUCOSE-RANDOM NEGATIVE (Negative); URINE KETONES NEGATIVE (Negative); URINE LEUKOCYTES-REFLEX NEGATIVE (Negative); URINE NITRITE-REFLEX NEGATIVE (Negative); URINE PROTEIN NEGATIVE (Negative); URINE SPECIFIC GRAVITY 1.015 (1.005-1.030); URINE UROBILINOGEN 0.2 E.U./dl (0.2-1.0)
[2018-12-05 15:55] VITALS: BP 107/72
[2018-12-05 16:43] VITALS: BP 112/76
--- NOTE | 2018-12-05 16:46 | EKG ---
[place] [address] ELECTROCARDIOGRAM REPORT Name: JACEK KURTZ Room: [address] IN 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
[2018-12-05 19:50] VITALS: BP 131/72
[2018-12-06] VITALS: BP 108/63
[2018-12-06 04:03] VITALS: BP 107/66
[2018-12-06 08:00] VITALS: BP 140/78
[2018-12-06 09:29] LABS: HEMATOCRIT 34.3 % (42.0-52.0); HEMOGLOBIN 11.3 gm/dL (14.0-18.0); MCH 30.2 pg (26.0-34.0); MCV 91.6 fL (80.0-100.0); MPV 7.6 fl. (7.2-11.1); RBC 3.74 mil/uL (4.50-6.00); RDW-CV 15.5 % (10.5-14.5); WBC 8.9 thou/uL (4.0-11.0)
[2018-12-06 09:41] LABS: CALCIUM 8.4 mg/dL (8.5-10.1); CREATININE 2.4 mg/dL (0.6-1.3)
[2018-12-06 12:00] VITALS: BP 100/54
[2018-12-06 16:00] VITALS: BP 112/64
[2018-12-06 20:00] VITALS: BP 114/67
[2018-12-07] VITALS: BP 115/63
[2018-12-07 04:00] VITALS: BP 105/65
[2018-12-07 04:39] LABS: HEMATOCRIT 33.8 % (42.0-52.0); MCH 30.1 pg (26.0-34.0); MCHC 32.5 g/dL (28.0-37.0); MCV 92.4 fL (80.0-100.0); MPV 7.9 fl. (7.2-11.1); RBC 3.65 mil/uL (4.50-6.00); RDW-CV 15.8 % (10.5-14.5); WBC 8.5 thou/uL (4.0-11.0)
[2018-12-07 04:52] LABS: CALCIUM 8.2 mg/dL (8.5-10.1); CREATININE 2.4 mg/dL (0.6-1.3); MAGNESIUM 1.8 mg/dL (1.8-2.4); POTASSIUM 3.3 mmol/L (3.5-5.1)
[2018-12-07 08:00] VITALS: BP 117/75
--- NOTE | 2018-12-07 09:58 | EKG ---
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
[2018-12-07 12:00] VITALS: BP 104/57
[2018-12-07 15:00] VITALS: BP 120/72
[2018-12-07 20:45] VITALS: BP 102/59
[2018-12-08] VITALS (7 sets, daily range): BP systolic 62–124; BP diastolic 38–63
[2018-12-08 04:13] LABS: HEMATOCRIT 35.4 % (42.0-52.0); HEMOGLOBIN 11.3 gm/dL (14.0-18.0); MCH 29.6 pg (26.0-34.0); MCHC 32.1 g/dL (28.0-37.0); MCV 92.5 fL (80.0-100.0); MPV 7.8 fl. (7.2-11.1); RBC 3.83 mil/uL (4.50-6.00); RDW-CV 15.6 % (10.5-14.5); WBC 7.4 thou/uL (4.0-11.0)
[2018-12-08 04:30] LABS: CALCIUM 8.6 mg/dL (8.5-10.1); CREATININE 2.4 mg/dL (0.6-1.3); MAGNESIUM 2.1 mg/dL (1.8-2.4); POTASSIUM 4.1 mmol/L (3.5-5.1)
[2018-12-09] VITALS (9 sets, daily range): BP systolic 77–123; BP diastolic 43–75
[2018-12-09 05:11] LABS: CALCIUM 8.7 mg/dL (8.5-10.1); CREATININE 2.1 mg/dL (0.6-1.3); MAGNESIUM 2.2 mg/dL (1.8-2.4)
--- NOTE | 2018-12-09 11:55 | EKG ---
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
[2018-12-10 00:05] VITALS: BP 124/70
[2018-12-10 04:00] VITALS: BP 133/75
[2018-12-10 05:28] LABS: CALCIUM 8.5 mg/dL (8.5-10.1); CREATININE 2.3 mg/dL (0.6-1.3); MAGNESIUM 2.3 mg/dL (1.8-2.4); POTASSIUM 3.9 mmol/L (3.5-5.1)
[2018-12-10 08:00] VITALS: BP 89/49
[2018-12-10] MEDS ORDERED: SORINE 80 MG TA80 M1 PO (09:58)
[2018-12-10] MEDS ORDERED: K-DUR10 MEQ PO (09:58)
[2018-12-10] MEDS ORDERED: MIDODRINE HCL 55 M1 PO (09:58)
[2018-12-10] MEDS ORDERED: LASIX 20 MG TAB20 MG PO (09:58)
[2018-12-10 11:39] VITALS: BP 105/62
[2018-12-10 15:03] VITALS: BP 77/43
[2018-12-10 15:13] VITALS: BP 77/43
== END 2018-12-10 15:45 | disposition home health service (06) | DRG 291 ==
LOC: M.ERS 13:39 → M.TBA-ER 14:55 → M.2W 14:55
PROVIDERS: Emergency Medicine Emergency Medical Services; Internal Medicine; ADMIT Internal Medicine
DX: I13.0 Hypertensive heart and chronic kidney disease with heart failure and stage 1 through stage 4 chronic kidney disease, or unspecified chronic kidney disease (principal); N17.0 Acute kidney failure with tubular necrosis; I50.32 Chronic diastolic (congestive) heart failure; N18.4 Chronic kidney disease, stage 4 (severe); I95.2 Hypotension due to drugs; N40.1 Benign prostatic hyperplasia with lower urinary tract symptoms; I25.10 Atherosclerotic heart disease of native coronary artery without angina pectoris; R33.8 Other retention of urine; N28.1 Cyst of kidney, acquired; E78.00 Pure hypercholesterolemia, unspecified; I87.2 Venous insufficiency (chronic) (peripheral); F32.9 Major depressive disorder, single episode, unspecified; R63.4 Abnormal weight loss; R00.1 Bradycardia, unspecified; T44.6X5A Adverse effect of alpha-adrenoreceptor antagonists, initial encounter; Y92.89 Other specified places as the place of occurrence of the external cause; Z68.37 Body mass index [BMI] 37.0-37.9, adult; Z95.5 Presence of coronary angioplasty implant and graft; Z79.02 Long term (current) use of antithrombotics/antiplatelets; Z79.899 Other long term (current) drug therapy; Z88.0 Allergy status to penicillin; Z82.49 Family history of ischemic heart disease and other diseases of the circulatory system

== ENCOUNTER 2019-05-11 15:32 | Inpatient (IN) | payer MEDICARE ==
[~2019-05-11] VITALS: Ht 182.9 cm; Wt 61.2 kg
[~2019-05-11 15:32] MED LIST changes: +K-DUR10 MEQ PO; +LASIX 20 MG TAB20 MG PO; +MIDODRINE HCL 55 M1 PO
[2019-05-11 15:36] VITALS: BP 139/83
[2019-05-11 16:29] LABS: ABSOLUTE EOSINOPHILS 0.1 thou/uL (0.0-0.7); ABSOLUTE LYMPHOCYTES 1.2 thou/uL (0.8-5.3); ABSOLUTE MONOCYTES 0.6 thou/uL (0.0-1.2); ABSOLUTE NEUTROPHILS 5.4 thou/uL (1.6-8.1); BASOPHILS 0.4 %; EOSINOPHILS 1.2 %; HEMATOCRIT 39.4 % (42.0-52.0); HEMOGLOBIN 13.1 gm/dL (14.0-18.0); LYMPHOCYTES 16.8 %; MCH 30.5 pg (26.0-34.0); MCHC 33.2 g/dL (28.0-37.0); MCV 91.9 fL (80.0-100.0); MONOCYTES 8.4 %; NUCLEATED RBCS 0 /100WBC; PLATELET COUNT* 258 thou/uL (150-400); POLYS 73.2 %; RBC 4.28 mil/uL (4.50-6.00); RDW-CV 13.8 % (10.5-14.5); WBC 7.4 thou/uL (4.0-11.0)
[2019-05-11 16:38] LABS: CREATININE 2.1 mg/dL (0.6-1.3)
[2019-05-11 16:40] LABS: APTT 23.3 Seconds (25.0-31.3); PROTIME 10.2 Seconds (9.20-11.50)
[2019-05-11 16:49] LABS: ALBUMIN 3.7 g/dL (3.4-5.0); TOTAL BILIRUBIN 0.4 mg/dL (<0.1-1.0); TOTAL PROTEIN 7.7 g/dL (6.4-8.2)
[2019-05-11 19:55] VITALS: BP 105/77
[2019-05-11 20:07] VITALS: BP 138/76
[2019-05-12] VITALS (8 sets, daily range): BP systolic 103–136; BP diastolic 61–80
--- NOTE | 2019-05-12 08:25 | NUR ---
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 HE IS ABLE TO COMMUNICATE HIS NEEDS TO STAFF EFFECTIVELY. CURRENT PAIN MEDICATION REGIMEN HAS BEEN ADEQUATE FOR CONTROLLING HIS PAIN UP TO THIS TIME. HE HAS BEEN NPO SINCE MIDNIGHT FOR A CARDIOLOGY CONSULT LATER TODAY. CALIBRATION LABORATORY TECHNICIAN ALSO CONSULTED.
[2019-05-12 09:46] LABS: CHOLESTEROL 162 mg/dL (<200); HDL CHOLESTEROL 31 mg/dL (>40); LDL CHOLESTEROL 74 mg/dL (<100); TC:HDL 5.2 Ratio (Not establshd); TRIGLYCERIDE 286 mg/dL (<150); VLDL 57 mg/dL (<40)
[2019-05-12 09:47] LABS: SERUM ASSESSMENT Clear
--- NOTE | 2019-05-12 12:43 | NUR ---
ASSUMED PT CARE REPORT RECEIVED FROM NURSE PT IS AOX4 COMPLAINS OF CHEST PAIN OF LEVEL 7. NITROGLYCERIN GIVEN. PT STATES RELIEF AFTER NITRO WAS GIVEN. MORNING MEDS GIVEN ORDERED. PT SEEN BY CARDIOLOGY MORTGAGE ADVISOR. PT IS TO SAY NPO PER FARMER CASH GRAIN. PT COMPLAINS OF PAIN AGAIN IN CHEST. NITRO GIVEN A SECOND TIME. TROP STAT ORDERED. RESULT IS 0.61. RESULT COMMUNICATED TO MORTGAGE ADVISOR PER VOICEMAIL.HEPARIN INFUSING AT 100O U/HR. APTT RESULT 34.5. HEPARIN BOLUS GIVEN TO PT, WELL DRIP WAS INCREASED BY 2 UNITS. PT STRAIGTH CATH. SEE CHART FOR OUTPUT. CALL LIGHT WITHIN REACH. WILL CONTINUE TO MONITOR
--- NOTE | 2019-05-12 12:52 | 2DMMODE ---
[place] [address] 2 D/M-MODE ECHOCARDIOGRAM Name: JACEK KURTZ [facility] IN [facility]#: [id number] Admission: 05/11/19 Attend Phys: Syeda Johnson, Discharge: Date of : 48 Date of Service: 05/12/19 1251 Report #: [id number] THIS REPORT FOR: cc: DYLAN - No family physician/PCP FAM - No family physician/PCP Jacek Castillo MD [facility] ~ APPROVED REPORT Study performed: 05/12/2019 10:16:46 EXAM: Comprehensive 2D, Doppler, and color-flow Echocardiogram Patient Location: In-Patient Room #: [facility] Status: routine BSA: 2.50 HR: 70 bpm BP: 133/80 mmHg Rhythm: NSR Other Information Study Quality: Good Indications Non STEMI 2D Dimensions IVSd: 13.26 (7-11mm) LVOT Diam: 23.92 (18-24mm) LVDd: 38.69 mm PWd: 12.90 (7-11mm) Ascending Ao: 39.09 (22-36mm) LVDs: 25.73 (25-40mm) Aortic Root: 39.39 mm Volumes Left Atrial Volume (Systole) LA ESV Index: 17.70 mL/m2 Aortic Valve AoV Peak Williams.: 1.45 m/s AO Peak Gr.: 8.46 mmHg LVOT Max P.56 mmHg AO Mean Gr.: 4.56 mmHg LVOT Mean P.86 mmHg LVOT Max V: 0.94 m/s AO V2 VTI: 24.04 cm LVOT Mean V: 0.63 m/s MONTSE (VTI): 4.23 cm2 LVOT V1 VTI: 22.61 cm AI Jenkins: 2.36 m/s2 [place] [address] 2 D/M-MODE ECHOCARDIOGRAM Name: JACEK KURTZ Room: [address] IN .R.#: [id number] Admission: 05/11/19 Attend Phys: Syeda Johnson, Discharge: Date of : 48 Date of Service: 05/12/19 1251 Report #: [id number] AI PHT: 472.68 ms Mitral Valve E/A Ratio: 0.71 MV Decel. Time: 321.15 ms MV E Max Williams.: 0.53 m/s MV PHT: 93.13 ms MVA (PHT): 2.36 cm2 TDI E/Lateral E': 4.82 E/Medial E': 7.57 Medial E' Williams.: 0.07 m/s Lateral E' Williams.: 0.11 m/s Pulmonary Valve PV Peak Williams.: 0.62 m/s PV Peak Gr.: 1.52 mmHg Tricuspid Valve RAP Estimate: 5.00 mmHg TR Peak Gr.: 40.98 mmHg RVSP: 46.00 mmHg PA Pressure: 46.00 mmHg Left Ventricle The left ventricle is normal size. There is normal LV segmental wall motion. Mild concentric left ventricular hypertrophy. Left ventricular systolic function is normal. The left ventricular ejection fraction is within the normal range. LVEF is 55-60%. Grade I - abnormal relaxation pattern. Right Ventricle The right ventricle is normal size. The right ventricular systolic function is normal. Atria The left atrium size is normal. The right atrium size is normal. Aortic Valve Mild aortic valve sclerosis. Mild aortic regurgitation. There is no aortic valvular stenosis. Mitral Valve The mitral valve is normal in structure. There is no mitral valve regurgitation noted. No evidence of mitral valve stenosis. [place] [address] 2 D/M-MODE ECHOCARDIOGRAM Name: JACEK KURTZ Room: [address]#: [id number] Admission: 05/11/19 Attend Phys: Syeda Johnson, Discharge: Date of : 48 Date of Service: 05/12/19 1251 Report #: [id number] The tricuspid valve is normal in structure. Mild tricuspid regurgitation. Moderate pulmonary hypertension. Pulmonic Valve The pulmonary valve is normal in structure. There is no pulmonic valvular regurgitation. Great Vessels The aortic root is normal in size. IVC is not well visualized. Pericardium There is no pericardial effusion. <Conclusion> The left ventricle is normal size. Mild concentric left ventricular hypertrophy. Left ventricular systolic function is normal. The left ventricular ejection fraction is within the normal range. LVEF is 55-60%. Grade I - abnormal relaxation pattern. The right ventricle is normal size. The left atrium size is normal. Mild aortic valve sclerosis. Mild aortic regurgitation. There is no aortic valvular stenosis. The mitral valve is normal in structure. The tricuspid valve is normal in structure. Mild tricuspid regurgitation. Moderate pulmonary hypertension. There is no pericardial effusion. There is normal LV segmental wall motion. <ELECTRONICALLY SIGNED> By: Jacek Castillo MD, FACC 05/12/19 1251 125 125 Jacek Castillo MD, FACC /INF
--- NOTE | 2019-05-12 14:44 | NUR ---
Pt is A&O. Resides at home with his sister. Independent. Pt uses a cane for mobility, no home o2. Hx of [facility]. No hx of SNF. Goal is home at dc. Spoke with , anticipate dc in a few days. Following.
--- NOTE | 2019-05-12 15:36 | NUR ---
WOUND NURSE: PATIENT SEEN TO ADDRESS SKIN LESIONS ON BLE. HAS A 4 X 5 CLUSTER OF WOUNDS WITH INTACT SCABS ON THE LEFT TIBIAL AREA. THERE IS LOCALIED REDNESS, NO WARMTH AND MINIMAL SWELLING NOTED. WITH IS A 0.2 X 1.0 INACT SCAB ON THE RIGHT TIBIAL ASPECT. PATIENT REPORTS THESE ARE ABOUT 2 WEEKS OLD AND ARE THE RESULT OF SCRATCHING. LEGS AND FEET ARE DRY AND SCALY. BATHED BLE WITH SOAP AND WATER, RINSED, THEN PATTED DRY. APPLIED MOISTURIZING LOTION TO BOTH. PATIENT INSTRUCTED TO MAINTAIN SKIN CARE USING LOTION TO SKIN DAILY. PATIENT AGREES TO THIS.
--- NOTE | 2019-05-12 17:01 | NUR ---
new apttresult at 1600 is 44.0. heparin protocol followed.drip now at 1554 units per hour.4000 units of heparin bolus given.
--- NOTE | 2019-05-12 18:16 | NUR ---
APTT LAB DRAW SCHEDULED FOR 2249
[2019-05-13] VITALS (17 sets, daily range): BP systolic 110–142; BP diastolic 64–83
--- NOTE | 2019-05-13 05:22 | NUR ---
PT IS ABLE TO COMMUNICATE HIS NEEDS TO STAFF EFFECTIVELY. CURRENT PAIN MEDICATION REGIMEN HAS BEEN ADEQUATE FOR CONTROLLING HIS PAIN UP TO THIS TIME. HE HAS BEEN NPO SINCE MIDNIGHT FOR A POSSIBLE CARDIAC CATH PROCEDURE LATER TODAY.
[2019-05-13 05:44] LABS: HEMOGLOBIN 12.7 gm/dL (14.0-18.0); MCH 30.7 pg (26.0-34.0); MCHC 33.3 g/dL (28.0-37.0); MCV 92.3 fL (80.0-100.0); MPV 8.1 fl. (7.2-11.1); RBC 4.12 mil/uL (4.50-6.00); RDW-CV 13.7 % (10.5-14.5); WBC 8.2 thou/uL (4.0-11.0)
[2019-05-13 06:29] LABS: POTASSIUM 5.2 mmol/L (3.5-5.1); TROPONIN-I LEVEL 0.31 ng/mL (<0.06)
--- NOTE | 2019-05-13 11:26 | NUR ---
ASSUMED PT CARE REPORT RECEIVED FROM NURSE PT IS AOX4 DENIES PAIN OF ANY KIND. ON 2 L NC. VSS. NPO FOR POSSIBLE CARDIAC CATH TODAY. PENDING SCHEDULED TIME FROM CARDIAC INSOLE FILLER. CONSENT SIGNED AND PLACED IN CHART. [facility] CONTACT[facility] . THEY WILL BE NOTIFIED WHEN CARDIAC CATH IS OVER WITH. HEPARIN DRIO INFUSING AT 1554UNITS PER HOUR. APTT IS NOW THERAPEUTIC. PT USES STRAIGHT CATHETER IN ROOM. OUTPUT CHARTED. IV FLUID INFUSING AT 75 PER HOUR ORDERED THROUGH RIGHT FOREARM. WILL CONTINUE TO MONITOR PT
--- NOTE | 2019-05-13 13:10 | NUR ---
Nutrition: Consult for "skin problems." Admitted with NSTEMI. H/o HTN, CHF, BPH. NPO currently. BUN 43, cr 2, BG 120, alb 3.7. Wt: 290#. Noted scabs on legs. Hopeful for good po intake once diet advances. No other nutrition interventions at this time. Mild risk. Follow up for diet advancement, labs 05/20/19
--- NOTE | 2019-05-13 14:46 | NUR ---
PT WENT [facility] CARDIAC CATH . NO STENT PLACED. PT BACK ON FLOOR AT 1400. R GROIN DRESSING IS INTACT. NO COMPLAINT. LUNCH BOX AND WATER PROVIDED. PT PLACED ON 2 L NC. O2 SATURATION IS 93%. HEPARIN DRIP STOPPED AND TO BE RESTARTED AT 1900 PER KETTLE OPERATOR NURSE. PT ON BEDREST UNTIL 1900. IV FLUID INFUSING ORDERED. PT STRAIGHT CATH. 350 CC OF URINE OUT. NO FURTHER COMPLAINT. VS BEING MONITORED Q15 MINUTES. R LOWER EXTR PULSE PATENT. CALL LIGHT AT REACH. WILL CONTINUE TO MONITOR PT.
--- NOTE | 2019-05-13 18:47 | NUR ---
HEPARIN DRIP RESTARTED AT 1900 RATE IS 1554 UNITS PER HOUR. APTT THERAPEUTIC. PT OFF BEDREST
--- NOTE | 2019-05-13 18:49 | NUR ---
PT HAD VQ SCAN DONE. RESULT WAS CALLED IN TO THREAD MILLING MACHINE SET UP OPERATOR ESL TUTOR. MESSAGE LEFT.
[2019-05-14 00:49] VITALS: BP 139/61
[2019-05-14 04:29] VITALS: BP 132/75
[2019-05-14 04:42] LABS: ABSOLUTE EOSINOPHILS 0.2 thou/uL (0.0-0.7); ABSOLUTE LYMPHOCYTES 1.8 thou/uL (0.8-5.3); ABSOLUTE NEUTROPHILS 6.8 thou/uL (1.6-8.1); BASOPHILS 0.4 %; EOSINOPHILS 1.7 %; HEMATOCRIT 36.2 % (42.0-52.0); HEMOGLOBIN 11.9 gm/dL (14.0-18.0); LYMPHOCYTES 18.7 %; MCV 91.1 fL (80.0-100.0); NUCLEATED RBCS 0 /100WBC; PLATELET COUNT* 284 thou/uL (150-400); POLYS 69.2 %; RBC 3.97 mil/uL (4.50-6.00); RDW-CV 13.6 % (10.5-14.5); WBC 9.8 thou/uL (4.0-11.0)
[2019-05-14 05:14] LABS: CALCIUM 8.3 mg/dL (8.5-10.1); CREATININE 2.2 mg/dL (0.6-1.3); MAGNESIUM 1.5 mg/dL (1.8-2.4)
--- NOTE | 2019-05-14 07:51 | NUR ---
ASSUMED PATIENT CARE AT 1900. ASSESSMENT COMPLETED CHARTED. PATIENT IS SR WITH A BBB ON THE MONITOR. HEPARIN DRIP DISCONTINUED PER PHYSICIAN'S ORDERS. HOURLY ROUNDING IN PLACE FOR PATIENT SAFETY. CLWR.
[2019-05-14 07:55] VITALS: BP 139/76
[2019-05-14 11:05] VITALS: BP 123/81
--- NOTE | 2019-05-14 13:18 | NUR ---
Spoke with , anticipate dc in 1-2 days with HH.
--- NOTE | 2019-05-14 13:56 | EKG ---
[place] [address] ELECTROCARDIOGRAM REPORT Name: JACEK KURTZ Room: [address] ADM IN .R.#: [id number] Admission: 05/11/19 Attend Phys: Syeda Johnson, Discharge: Date of : 48 Date of Service: 05/11/19 1545 Report #: [id number] THIS REPORT FOR: cc: DYLAN - Valentina family physician/PCP FAM - No family physician/PCP Jacek Castillo MD [facility] THIS REPORT FOR: //name// [facility] ED Test Date: 2019-05-11 Test Time: 15:45:46 Pat Name: JACEK KURTZ Department: Room: [facility] Gender: M Ballistics Expert: : 1950 Requested By: James العراقي Order Number: [id number] MD: Jacek Castillo Measurements Intervals [place] Rate: 107 P: -35 CA: 156 QRS: -80 QRSD: 160 T: 78 QT: 371 QTc: 495 Interpretive Statements Sinus tachycardia RBBB and LAFB Baseline wander in lead(s) V1 Compared to ECG 12/08/2018 07:58:44 Sinus rate has increased Electronically Signed On 05-12-2019 16:04:16 CLAY MACHINE OPERATOR by Jacek Castillo [email or web address] <ELECTRONICALLY SIGNED> By: Jacek Castillo MD, [facility] 05/12/19 1604 1545 1545 Jacek Castillo MD, [facility] /EPI
--- NOTE | 2019-05-14 15:25 | NUR ---
I have reviewed the documentation by SYLVIA LOWERY from 05/14/19 to 05/14/19 and I concur with it. ANGI BOLDEN
[2019-05-14 16:12] VITALS: BP 100/63
[2019-05-14 20:00] VITALS: BP 133/64
[2019-05-15] VITALS: BP 113/58
[2019-05-15 04:08] VITALS: BP 127/66
--- NOTE | 2019-05-15 05:17 | NUR ---
ASSUMED PATIENT CARE AT 1900. ASSESSMENT COMPLETED CHARTED. PATIENT IS SR WITH A BBB ON THE MONITOR. HOURLY ROUNDING IN PLACE FOR PATIENT SAFETY. CLWR.
[2019-05-15 05:45] LABS: HEMOGLOBIN 11.8 gm/dL (14.0-18.0); MCH 30.7 pg (26.0-34.0); MCHC 32.9 g/dL (28.0-37.0); MCV 93.2 fL (80.0-100.0); MPV 8.4 fl. (7.2-11.1); RBC 3.86 mil/uL (4.50-6.00); WBC 8.3 thou/uL (4.0-11.0)
[2019-05-15 05:50] LABS: CALCIUM 8.4 mg/dL (8.5-10.1); CREATININE 2.2 mg/dL (0.6-1.3)
--- NOTE | 2019-05-15 10:24 | NUR ---
Spoke with , anticipate dc to home today. Pt declined needing/wanting HH.
[2019-05-15 11:22] VITALS: BP 132/79
[2019-05-15 16:15] VITALS: BP 139/80
--- NOTE | 2019-05-15 18:01 | CARD ---
[facility] [address] [place] [address] CARDIAC CATH REPORT Name: JACEK KURTZ Room: [address] IN [facility]#: [id number] Admission: 05/11/19 Attend Phys: Syeda Johnson MD Discharge: Date of : 48 Report #: [id number] THIS REPORT FOR: //name// cc: DYLAN Montgomery family physician/PCP DYLAN Montgomery family physician/PCP ~ THIS REPORT FOR: //name// APPROVED REPORT Study performed: 05/13/2019 12:58:44 Patient Details Patient Status: In-Patient Room #: The patient is a 69 year-old male Event Personnel Garth New Delicatessen Store Manager, Asaf Lopez BUTTON BRADDER Monitor, Myriam Brice RTR Scrub, Maura Gandara RN Hostess Procedures Performed Left Heart Cath w/or w/o Coronaries [id number] [facility] Indication Non-STEMI Risk Factors Coronary Artery Disease Previous Procedures/Diagnoses Previous PCI Procedure Narrative A 6 Fr Sheath sheath was inserted into the RFA. Coronary angiography was performed using coronary diagnostic catheters. The right coronary system was accessed and visualized with a JR4 catheter. The left coronary system was accessed and visualized with a JL4 catheter. The left ventricle was accessed and visualized with a PIG catheter. The patient tolerated the procedure well and there were no complications associated with the procedure. Intraoperative Conscious Sedation Fentanyl 50 mcg Fluoro Time: 1.8 minutes Dose: DAP 843 cGycm2 151 mGy [facility] [address] [place] [address] CARDIAC CATH REPORT Name: JACEK KURTZ Room: [address] ADM IN [facility].#: [id number] Admission: 05/11/19 Attend Phys: Syeda Johnson MD Discharge: Date of : 48 Report #: [id number] Contrast Type and Amount: Visipaque 60 ml Coronary Angiography The patient's coronary anatomy is right dominant. Diagnostic Cath Left Main The left main coronary artery is normal and trifurcates into a left anterior descending, intermediate ramus and circumflex coronary artery. LAD The left anterior descending coronary artery is mildly plaqued proximally up to 10%. There is a patent stent in the midportion with no evidence of significant restenosis. Distally the vessel is diffusely plaqued up to 10%. Diagonal 1 A large size first diagonal branch is normal. Circumflex The circumflex was coronary artery is normal in its proximal mid and distal portion. OM1 A moderate size first obtuse marginal branch is normal. OM2 A moderate size second obtuse marginal branch is normal. Right Coronary The right coronary artery is large and dominant. The artery appears somewhat headache. There is a 50% narrowing proximally and 10% narrowing in the mid to distal portion. R PDA The PDA appears mildly ectatic without significant stenoses. RPLV Posterior lateral LV branch appears normal. Ramus A large ramus branch is normal. Left Ventriculography Left Ventriculography was not performed. Conclusion 1. Widely patent stent in the mid left anterior descending coronary artery. 2. Nonocclusive coronary artery disease otherwise as outlined above. Recommendations 1. Continue medical management and aggressive risk factor modification. <ELECTRONICALLY SIGNED> By: Garth New MD, FACC 05/15/19 1800 1800 1800[facility] New MD, FACC /INF
[2019-05-15 20:00] VITALS: BP 99/68
[2019-05-16 00:33] VITALS: BP 101/61
--- NOTE | 2019-05-16 04:12 | NUR ---
ASSUMED PATIENT CARE AT 1900. ASSESSMENT COMPLETED CHARTED. PATIENT IS NSR WITH A BBB ON THE MONITOR. HOURLY ROUNDING IN PLACE FOR PATIENT SAFETY. CLWR.
[2019-05-16 04:28] VITALS: BP 101/48
[2019-05-16 05:22] LABS: CALCIUM 8.4 mg/dL (8.5-10.1); CREATININE 2.2 mg/dL (0.6-1.3); MAGNESIUM 1.7 mg/dL (1.8-2.4); POTASSIUM 4.2 mmol/L (3.5-5.1)
[2019-05-16 08:00] VITALS: BP 120/74
[2019-05-16 12:00] VITALS: BP 106/62
[2019-05-16] MEDS ORDERED: ASA81BEC PO (12:22)
[2019-05-16 13:19] VITALS: BP 106/62
--- NOTE | 2019-05-16 13:44 | NUR ---
Pt discharging to home today, sister to provide dc transportation. Pt in agreement with , faxed HH referral to [facility].
--- NOTE | 2019-05-16 18:36 | NUR ---
ORDER RECEIVED TO JANNYREG PATIENT HOME TO SELF CARE. MED REC, MEDICATION EDUCATION, STROKE EDUCATION, AND NEED FOR FOLLOW UP APPOINTMNET S COVERED AND STATED UNDERSTOOD BY PATIENT. PATINET BELONGINGS GATHERED AND PATIENT WAS TAKEN VIA WHEELCHAIR TO AWAITING CAR WITH FAMILY PRESENT. PATINET IN NOAPPARNET SIGNS OF DISTRESS AT TIME OF DISCHARGE.
== END 2019-05-16 17:55 | disposition home health service (06) | DRG 281 ==
LOC: M.ERS 15:32 → M.TBA-ER 18:41 → M.2W 18:41
PROVIDERS: Emergency Medicine Emergency Medical Services; Registered Nurse; ADMIT Internal Medicine
PROC: 4A023N7 Measurement of Cardiac Sampling and Pressure, Left Heart, Percutaneous Approach (ICD-10-PCS; principal; 2019-05-13)
PROC: B211YZZ Fluoroscopy of Multiple Coronary Arteries using Other Contrast (ICD-10-PCS; 2019-05-13)
DX: I21.4 Non-ST elevation (NSTEMI) myocardial infarction (principal); I13.0 Hypertensive heart and chronic kidney disease with heart failure and stage 1 through stage 4 chronic kidney disease, or unspecified chronic kidney disease; Z68.1 Body mass index [BMI] 19.9 or less, adult; I50.32 Chronic diastolic (congestive) heart failure; E66.01 Morbid (severe) obesity due to excess calories; N18.3 Chronic kidney disease, stage 3 (moderate); E78.00 Pure hypercholesterolemia, unspecified; N40.0 Benign prostatic hyperplasia without lower urinary tract symptoms; F32.9 Major depressive disorder, single episode, unspecified; E78.5 Hyperlipidemia, unspecified; I87.2 Venous insufficiency (chronic) (peripheral); I87.8 Other specified disorders of veins; I25.10 Atherosclerotic heart disease of native coronary artery without angina pectoris; Z95.5 Presence of coronary angioplasty implant and graft; Z79.899 Other long term (current) drug therapy; Z88.0 Allergy status to penicillin; Z79.01 Long term (current) use of anticoagulants; Z82.49 Family history of ischemic heart disease and other diseases of the circulatory system